=== PATIENT | female | born 1980 | race Caucasian/White ===

== ENCOUNTER 2022-01-01 18:31 | Emergency (ER) | payer OTHER, SELFPAY ==
--- NOTE | ~2022-01-01 | CT_ITS ---
EXAMINATION: CT brain wo con DATE: 01/01/2022 19:02 INDICATION: fall . TECHNIQUE: Computed tomography (CT) of the head was performed without intravenous contrast. The mA wa s adjusted according to patient size. Iterative reconstruction technique was employed. The dose-lengt h product was 605.33 mGy-cm. COMPARISON: None FINDINGS: No acute intracranial hemorrhage or extra-axial fluid collection. No hydrocephalus, mass, or herniation. No acute ischemic infarct. Unremarkable dural venous sinus attenuation. No acute osseous abnormality. Left frontal scalp soft tissue swelling. The aerated spaces are clear. IMPRESSION: No acute intracranial process. Reviewed, dictated and finalized at location K.
--- NOTE | ~2022-01-01 | CT_ITS ---
EXAMINATION: CT cervical spine wo con DATE: 01/01/2022 19:03 INDICATION: fall TECHNIQUE: Computed tomography (CT) of the cervical spine was performed without intravenous contrast. Automated exposure control and iterative reconstruction technique were employed. The dose-length pro duct was 253.80 mGy-cm. COMPARISON: None FINDINGS: Vertebral Body Alignment: Intact. Craniocervical and atlantoaxial alignment: No degenerative change. Alignment intact. Osseous structures/fracture: No evidence of a lytic or blastic process in the visualized spine. No e vidence of acute fracture. Cervical soft tissues: The paraspinal soft tissues planes are maintained. Degenerative changes: No significant degenerative changes. IMPRESSION: No acute fracture or traumatic malalignment in the cervical spine. Reviewed, dictated and finalized at location K.
[2022-01-01 18:34] VITALS: BP 163/92; PULSE 77; RESP 18; TEMP 36.4; O2SAT 100
--- NOTE | 2022-01-01 18:50 | PC.NURSE ---
vrbo maninder telles, ct brain/cervical spine
--- NOTE | 2022-01-01 18:54 | ED.HEATRA ---
HPI - Head Injury General Chief complaint: Head Injury Stated complaint: fall down flight of steps/hi/loc Time Seen by Provider: 01/01/22 18:49 Source: patient Mode of arrival: ambulatory Limitations: no limitations History of Present Illness HPI Narrative: This is a 41-year-old female that presents to the emergency department after head injury last night. Reports she was carrying laundry and tripped and fell. She thinks she fell down about 10 steps. She does believe she briefly lost consciousness. Reports today she has been feeling dizzy when she stands. She has been having headaches and neck pain. Denies any other focal injuries. Reports some nausea. Denies vomiting, numbness, or weakness. Review of Systems Review of Systems: CONSTITUTIONAL: Denies fever EYES: Denies visual changes GASTROINTESTINAL: Denies vomiting MUSCULOSKELETAL: Reports joint pain, and myalgia. NEUROLOGIC: Reports headache. Denies numbness, or weakness. All systems reviewed & are unremarkable except as noted in HPI and below PMFSH Past Medical History Medical History (Updated 01/01/22 @ 19:51 by Elly Curiel PA-C) History of gastroesophageal reflux (GERD) Social History Social History (Updated 01/01/22 @ 18:55 by Elly Curiel PA-C) Substance use: never Exam Narrative: GENERAL: Well-appearing, well-nourished, and in no acute distress. HEAD: Normocephalic, atraumatic. EYES: PERRLA and EOMI. ENT: Nares clear, no rhinorrhea or epistaxis. Mucous membranes moist. Oropharynx without tonsillar hypertrophy exudate or other lesions. Bilateral TMs pearly garcia non-bulging NECK: Supple. No adenopathy or masses. C-collar in place CHEST: Clear to auscultation. No respiratory distress. No wheezes rales or rhonchi HEART: Regular rate and rhythm. No murmur heard. Normal peripheral pulses. BACK: No midline thoracic or lumbar spine tenderness EXTREMITIES: Normal range of motion. No edema or obvious deformity. Strength equal in bilateral upper and lower extremities (5/5) SKIN: Warm, dry, no rash. NEURO: No focal deficits. Alert and oriented x3. Cranial nerves II through XII grossly intact PSYCH: Normal mood and affect Course Vital Signs Vital signs: Vital Signs Temperature 97.6 F 01/01/22 18:34 Pulse Rate 77 01/01/22 18:34 Respiratory Rate 18 01/01/22 18:34 Blood Pressure 163/92 H 01/01/22 18:34 Pulse Oximetry 100 01/01/22 18:34 Oxygen Delivery Room Air 01/01/22 18:34 Temperature 97.6 F 01/01/22 18:34 Pulse Rate 63 01/01/22 20:51 Respiratory Rate 18 01/01/22 20:51 Blood Pressure 118/77 01/01/22 20:51 Pulse Oximetry 100 01/01/22 20:51 Oxygen Delivery Room Air 01/01/22 18:34 MDM - Head Injury MDM Narrative Medical decision making narrative: Patient presents to the emergency department after head injury last night with headache and neck pain. Patient is neurologically intact. CT scans of the brain and cervical spine without acute findings. Patient was instructed on continued care of concussion. She is to follow-up with her primary care provider. She was given warnings to return to the ER Imaging Data Radiologist's impression: ITS Impressions Head CT 01/01/22 19:16 IMPRESSION: No acute intracranial process. Cervical Spine CT 01/01/22 19:22 IMPRESSION: No acute fracture or traumatic malalignment in the cervical spine. Critical Care Time Critical Care Time Critical Care Time: No Discharge Plan Discharge Clinical Impression: Concussion Qualifiers: Encounter type: initial encounter Loss of consciousness presence/duration: with LOC of 30 min or less Qualified Code(s): S06.0X1A - Concussion with loss of consciousness of 30 minutes or less, initial encounter Patient Disposition: Home, Self-Care Condition: Stable Instructions: Concussion (ED) Additional Instructions: Return to the emergency department if you experience visual changes, vom
[2022-01-01 20:51] VITALS: BP 118/77; PULSE 63; RESP 18; O2SAT 100
== END 2022-01-01 21:38 | disposition home or self-care (01) ==
PROVIDERS: Emergency Provider Emergency Medicine
DX: S06.0X1A Concussion with loss of consciousness of 30 minutes or less, initial encounter (principal); K21.9 Gastro-esophageal reflux disease without esophagitis; W10.9XXA Fall (on) (from) unspecified stairs and steps, initial encounter
CPT/HCPCS: 70450; 72125; 99284; L0140